=== PATIENT | male | born 1975 | race Hispanic/Latino ===

== ENCOUNTER 2020-03-03 08:25 | Inpatient (IN) | payer OTHER ==
[~2020-03-03] VITALS: Ht 185.4 cm; Wt 98.9 kg
[2020-03-03] MEDS: AZITHROMYCIN 500MG/NS 250 ML 250 ML IV SCH (09:23)
[2020-03-03] MEDS: CEFTRIAXONE SOD 1 GM/NS 50 ML 50 ML IV SCH (09:23)
[2020-03-03] MEDS ORDERED: ACETAMINOPHEN 325 MG TAB PO ONE (09:30)
[2020-03-03 09:47] LABS: HEMATOCRIT 33.9 % (38.2-49.6); HEMOGLOBIN 11.6 g/dL (14.0-18.0); LYMPHOCYTES # (AUTO) 0.4 (1.0-3.2); LYMPHOCYTES % 12.3 % (18.0-39.1); MEAN CORPUSCULAR HGB CONC 34.2 g/dL (31-35); MONOCYTES # (AUTO) 0.1 (0.2-0.8); MONOCYTES % 3.7 % (4.4-11.3); NEUTROPHILS # (AUTO) 2.5 (2.1-6.9); NEUTROPHILS % 83.7 % (38.7-80.0); PLATELET COUNT 125 x10e3/uL (140-360); RED BLOOD COUNT 4.29 x10e6/uL (4.3-5.7); RED CELL DISTRIBUTION WIDTH 14.2 % (11.7-14.4)
--- NOTE | 2020-03-03 10:02 | Diagnostic Imaging Report ---
EXAMINATION: CHEST SINGLE (PORTABLE) INDICATION: Cough, shortness of breath COMPARISON: None FINDINGS: LINES/TUBES:EKG leads overlie the chest. LUNGS:The lung volumes are low. Patchy bilateral airspace opacities. PLEURA:No pleural effusion or pneumothorax. MEDIASTINUM:The cardiomediastinal silhouette appears normal in size and shape. BONES/SOFT TISSUES:No acute osseous injury. ABDOMEN:No free air under the diaphragm. IMPRESSION: Patchy bilateral airspace opacities concerning for pneumonia in the proper clinical setting. Signed by: Stef Hickey MD on 03/03/2020 9:59 AM
[2020-03-03 10:05] LABS: ALANINE AMINOTRANSFERASE 33 IU/L (0-55); ALBUMIN/GLOBULIN RATIO 0.7 (0.8-2.0); ALKALINE PHOSPHATASE 173 IU/L (40-150); ANION GAP 14.8 mmol/L (8-16); BLOOD UREA NITROGEN 15 mg/dL (7-26); BUN/CREATININE RATIO 19 (6-25); CALCIUM 8.6 mg/dL (8.4-10.2); CARBON DIOXIDE 25 mmol/L (22-29); CHLORIDE 98 mmol/L (98-107); CREATINE KINASE 72 IU/L (30-200); EST GLOMERULAR FILTRATION RATE > 60 ML/MIN (60-); GLUCOSE 148 mg/dL (74-118); POTASSIUM 3.8 mmol/L (3.5-5.1); PROTHROMBIN TIME 13.8 seconds (11.9-14.5); SODIUM 134 mmol/L (136-145)
[2020-03-03 10:06] LABS: PARTIAL THROMBOPLASTIN TIME 33.9 seconds (23.8-35.5)
[2020-03-03] MEDS ORDERED: ONDANSETRON HCL INJ 2MG/ML 2ML 2 MG/ML VIAL IV PRN (11:30)
[2020-03-03] MEDS ORDERED: SODIUM CHLORIDE 0.9% 1000ML 1,000 ML IV SCH (11:30)
[2020-03-03] MEDS ORDERED: ALBUTEROL SULFATE HFA 8GM INHALATION AEROSOL INH PRN (11:30)
--- NOTE | 2020-03-03 11:43 | Emergency Department Note ---
History of Present Illnes History of Present Illness Chief Complaint: COVID PUI History of Present Illness This is a 44 year old male ONSET COUGH F/C ACHY ALL OVER 02/28, NOW SOB SINCE YESTERDAY, PT WENT TO TESTING SITE AND HAS POSITIVE RESULTS. PT ARRIVED SOB AND TACHYPNENIC. PT FEBRILE WELL 102.9 HERE. HAS TAKEN NO TYLENOL MANAGER AGENCY. PT AWAKE AND ALERT. SLIGHT TO MOD. RESP DISTRESS NOTED. PT AAOX4. NON SMOKER. 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 Arrival Mode: [facility] Treatment MANAGER AGENCY: O2, EKG, See EMS Report Clothing Worker Required: No Radiation: Reports non-radiation Severity: moderate Onset quality: gradual Timing of current episode: constant Progression: waxing and waning Chronicity: new Context: Denies recent illness Relieving factors: none Exacerbating factors: none Associated symptoms: Reports chest pain, Reports cough, Reports fever/chills, Reports headaches, Reports shortness of breath, Reports weakness, Reports other (ACHY ALL OVER) Past Medical/Family History Physician Review I have reviewed the patient's past medical and family history. Any updates have been documented here. Past Medical History Recent Fever: Yes Clinical Suspicion of Infectio: Yes New/Unexplained Change in Ment: No Past Medical History: Diabetes Other Surgery: RT TOE AMPUTATION Social History Smoking Cessation: Current every day smoker Counseling Performed: No Alcohol Use: None Any Illegal Drug Use: No TB Exposure/Symptoms: No Physically hurt or threatened: No Family History Family history of heart diseas: No Other Any Pre-Existing Lines (PICC,: No Review of Systems Review of Systems Constitutional: Reports as per HPI EENTM: Reports no symptoms Cardiovascular: Reports no symptoms Respiratory: Reports as per HPI Gastrointestinal: Reports no symptoms Genitourinary: Reports no symptoms Musculoskeletal: Reports no symptoms Integumentary: Reports no symptoms Neurological: Reports no symptoms Psychological: Reports no symptoms Endocrine: Reports no symptoms Hematological/Lymphatic: Reports no symptoms Physical Exam Related Data Allergies: Coded Allergies: No Known Allergies (Unverified , 03/03/20) Triage Vital Signs Vital Signs Date Time Temp Pulse Resp B/P (MAP) Pulse Ox O2 Delivery O2 Flow Rate FiO2 03/03/20 08:34 102.9 86 24 148/89 93 Room Air Vital signs reviewed: Yes Physical Exam CONSTITUTIONAL Constitutional: Present well-developed, Present well-nourished HENT HENT: Present normocephalic, Present atraumatic, Present oropharynx clear/moist, Present nose normal HENT L/R: Present left ext ear normal, Present right ext ear normal EYES Eyes: Reports PERRL, Reports conjunctivae normal NECK Neck: Present ROM normal PULMONARY Pulmonary: Present respiratory distress (MILD, WITH TACHYPNEA), Present other (DECR BS's BILAT BASES) CARDIOVASCULAR Cardiovascular: Present regular rhythm, Present heart sounds normal, Present capillary refill normal, Present normal rate GASTROINTESTINAL Abdominal: Present soft, Present nontender, Present bowel sounds normal GENITOURINARY Genitourinary: Present exam deferred SKIN Skin: Present warm, Present dry MUSCULOSKELETAL Musculoskeletal: Present ROM normal NEUROLOGICAL Neurological: Present alert, Present oriented x 3, Present no gross motor or sensory deficits PSYCHOLOGICAL Psychological: Present mood/affect normal, Present judgement normal Results Laboratory Result Diagram: 03/03/20 0930 03/03/20 0930 Laboratory Laboratory Tests Test 03/03/20 09:30 White Blood Count 3.00 x10e3/uL (4.8-10.8) Red Blood Count 4.29 x10e6/uL (4.3-5.7) Hemoglobin 11.6 g/dL (14.0-18.0) Hematocrit 33.9 % (38.2-49.6) Mean Corpuscular Volume 79.0 fL (81-99) Mean Corpuscular Hemoglobin 27.0 pg (28-32) Mean Corpuscular Hemoglobin Concent 34.2 g/dL (31-35) Red Cell Distribution Width 14.2 % (11.7-14.4) Platelet Count 125 x10e3/uL (140-360) Neutrophils (%) (Auto) 83.7 % (38.7-80.0) Lymphocytes (%) (Auto) 12.3 % (18.0-39.1) Monocytes (%) (Auto) 3.7 % (4.4-11.3) Eosinophils (%) (Auto) 0.0 % (0.0-6.0) Basophils (%) (Auto) 0.0 % (0.0-1.0) Neutrophils # (Auto) 2.5 (2.1-6.9) Lymphocytes # (Auto) 0.4 (1.0-3.2) Monocytes # (Auto) 0.1 (0.2-0.8) Eosinophils # (Auto) 0.0 (0.0-0.4) Basophils # (Auto) 0.0 (0.0-0.1) Absolute Immature Granulocyte (auto 0.01 x10e3/uL (0-0.1) Prothrombin Time 13.8 seconds (11.9-14.5) Prothromb Time International Ratio 1.00 Activated Partial Thromboplast Time 33.9 seconds (23.8-35.5) Sodium Level 134 mmol/L (136-145) Potassium Level 3.8 mmol/L (3.5-5.1) Chloride Level 98 mmol/L (98-107) Carbon Dioxide Level 25 mmol/L (22-29) Anion Gap 14.8 mmol/L (8-16) Blood Urea Nitrogen 15 mg/dL (7-26) Creatinine 0.80 mg/dL (0.72-1.25) Estimat Glomerular Filtration Rate > 60 ML/MIN (60-) BUN/Creatinine Ratio 19 (6-25) Glucose Level 148 mg/dL (74-118) Calcium Level 8.6 mg/dL (8.4-10.2) Total Bilirubin 2.5 mg/dL (0.2-1.2) Aspartate Amino Transf (AST/SGOT) 29 IU/L (5-34) Alanine Aminotransferase (ALT/SGPT) 33 IU/L (0-55) Alkaline Phosphatase 173 IU/L (40-150) Creatine Kinase 72 IU/L (30-200) Creatine Kinase MB 1.00 ng/mL (0-5.0) Troponin I 0.013 ng/mL (0-0.300) B-Type Natriuretic Peptide 90.0 pg/mL (0-100) Total Protein 7.2 g/dL (6.5-8.1) Albumin 3.0 g/dL (3.5-5.0) Globulin 4.2 g/dL (2.3-3.5) Albumin/Globulin Ratio 0.7 (0.8-2.0) Lab results reviewed: Yes Imaging Imaging results reviewed: Yes Impressions EXAMINATION: CHEST SINGLE (PORTABLE) INDICATION: Cough, shortness of breath COMPARISON: None FINDINGS: LINES/TUBES:EKG leads overlie the chest. LUNGS:The lung volumes are low. Patchy bilateral airspace opacities. PLEURA:No pleural effusion or pneumothorax. MEDIASTINUM:The cardiomediastinal silhouette appears normal in size and shape. BONES/SOFT TISSUES:No acute osseous injury. ABDOMEN:No free air under the diaphragm. IMPRESSION: Patchy bilateral airspace opacities concerning for pneumonia in the proper clinical setting. Signed by: Stef Hickey MD on 03/03/2020 9:59 AM Procedures 12 Lead ECG Interpretation ECG Interpretation : ECG: ECG 1 Clothing Worker: Interpreted by ED physician Date: Mar 03, 2020 Time: 08:38 Rhythm: sinus tachycardia Rate: tachycardia (103) QRS axis: left ST segments normal: Yes T waves normal: Yes Clinical Impression: abnormal ECG Assessment & Plan Medical Decision Making MDM CBC, CHEM, ECG, CARDIACS, BLOOD CX'S, COVID SWAB, CXR - R/O COVID/PNEUMONIA, STEMI/NSTEMI, ELECTROLYTE ABNL Reassessment Reassessment ADMIT TO SILVIA, JIMBO GREGORY Assessment & Plan Final Impression: (1) Pneumonia due to COVID-19 virus (2) Hypoxia Depart Disposition: ADMITTED Last Vital Signs Date Time Temp Pulse Resp B/P (MAP) Pulse Ox O2 Delivery O2 Flow Rate FiO2 03/03/20 08:34 102.9 86 24 148/89 93 Room Air DANIE MILIAN MD Mar 03, 2020 11:43
[2020-03-03] MEDS ORDERED: HYDRALAZINE HCL 20 MG/ML VIAL IV PRN (13:15)
[2020-03-03] MEDS ORDERED: GUAIFENESIN 600MG/DEXTROMETHORPHAN 30MG TABSR PO PRN (13:15)
--- NOTE | 2020-03-03 16:21 | NUR ---
[id number] no steroids not hypoxemic
--- NOTE | 2020-03-03 16:26 | NUR ---
CALL TO THE ER. SPOKE W MUSA / BEDSIDE NURSE. CM INQUIRED ABOUT HOME O2 EVAL. STATES RT HAD NOT BEEN THERE TO DO THE EVAL YET. STATES THE PT IS BEING ADMITTED TO OBS. CM WILL F/U IN THE AM.
[2020-03-03 16:36] LABS: CREATINE KINASE MB 0.7 ng/mL (0-5.0)
[2020-03-03] MEDS: ASCORBIC ACID 500 MG TAB PO SCH (16:46)
[2020-03-03] MEDS: FAMOTIDINE 20 MG TAB PO SCH (16:46)
[2020-03-03] MEDS ORDERED: KETOROLAC TROMETHAMINE 30 MG/ML VIAL IV STA (16:46)
--- NOTE | 2020-03-03 17:25 | Consultation ---
DATE OF CONSULTATION: HISTORY OF PRESENT ILLNESS: This is a 44-year-old male, who comes in with cough and shortness of breath for one day. Apparently, he was achy all over. The patient was admitted. He is currently on room air, comfortable, but little bit short of breath. PAST MEDICAL HISTORY: Denies. PAST SURGICAL HISTORY: Denies. ALLERGIES: NKA. LABORATORY DATA: His white count was 3, hemoglobin 11. His COVID is still pending. Sodium 134, creatinine 0.8. His chest x-ray showed patchy bilateral infiltrate. PAST MEDICAL HISTORY: Denies. PAST SURGICAL HISTORY: Denies. SOCIAL HISTORY: There is no smoking, drug abuse or abuse. PHYSICAL EXAMINATION: GENERAL: Currently, alert and oriented, does not seem in acute distress. VITAL SIGNS: Stable. Currently afebrile. HEENT: He is not icteric. NECK: Supple. CHEST: Clear. HEART: S1 and S2. No murmurs. ABDOMEN: Soft. IMPRESSION: Atypical pneumonia. I agree with Rocephin and azithromycin, oxygen as needed. Further recommendations to follow. We will follow with you. Lovenox at 40 mg subcutaneously q.24 hours. MD FANY Smith/[place] /[id number]
[2020-03-03] MEDS ORDERED: DEXTROSE 50% SYRINGE 50 ML IV PRN (19:00)
--- NOTE | 2020-03-03 19:07 | NUR ---
REPORT GIVEN TO THIS NURSE BY MUSA WALLIS
--- NOTE | 2020-03-03 19:25 | Consultation ---
DATE OF CONSULTATION: Pulmonary Critical Care Consultation CHIEF COMPLAINT: Dyspnea and cough. HISTORY OF PRESENT ILLNESS: The patient is a 44-year-old man. He has a history of diabetes. He reports fever and chills for 2 to 3 days. He has no chest pain. History of cough as well as some shortness of breath. He is not complaining of any nausea or vomiting. PAST MEDICAL HISTORY: 1. Diabetes. 2. No prior history of asthma. 3. No prior history of heart problems. PAST SURGICAL HISTORY: History of toe amputation. SOCIAL HISTORY: The patient is not a smoker. He is not a drinker. ALLERGIES: NO KNOWN DRUG ALLERGIES. REVIEW OF SYSTEMS: The patient is afebrile. The patient does have fevers. He is not complaining of any headache. He has no neck pain. He does have some cough. He has a difficulty breathing. He denies any abdominal pain. He has no nausea or vomiting. He has no leg edema. PHYSICAL EXAMINATION: VITAL SIGNS: The patient is afebrile. The T-max is 101.5. The blood pressure is 110/50 and saturation is 94% on nasal cannula. HEENT: Shows no facial swelling or erythema. LYMPHATIC: Shows no submandibular, cervical, or supraclavicular adenopathy. CARDIAC: Reveals regular rate and rhythm with normal S1, S2. LUNGS: Auscultation of lungs reveals crackles and rhonchi bilaterally. ABDOMEN: Soft, nontender. There is no rebound or guarding. EXTREMITIES: Shows no leg edema or calf tenderness. There is no cyanosis or clubbing. SKIN: Shows no rashes. NEUROLOGICAL: Shows no focal abnormalities. LABORATORY DATA: White blood cell count is 3 and hemoglobin is 11.6. The platelet count is 125. The BUN to creatinine ratio is 15 to 0.8 and the sodium is 134. Albumin is 3.0. Chest x-ray shows bilateral airspace disease. IMPRESSION: 1. Viral pneumonia, probable COVID-19 infection. 2. Diabetes. PLAN: 1. Continue Rocephin and Zithromax. 2. Dexamethasone. 3. Lovenox. 4. Albuterol inhaler as needed. 5. Monitor and control blood sugars. Fran Bueno MD [facility]/[place] /[id number]
[2020-03-03] MEDS: ENOXAPARIN SOD INJ 60 MG/0.6 ML SYR SC SCH (21:12)
[2020-03-03] MEDS: INSULIN REGULAR, HUMAN 100 UNIT/1 ML 3ML VIAL SQ SCH (21:15)
[2020-03-03] MEDS: ACETAMINOPHEN 325 MG TAB PO PRN (21:38)
[2020-03-04] VITALS (7 sets, daily range): BP systolic 105–154; BP diastolic 63–84
[2020-03-04] MEDS ORDERED: SODIUM CHLORIDE 0.9% 1000ML 1,000 ML ONE (02:44)
--- NOTE | 2020-03-04 02:48 | NUR ---
RECEIVED THE PATIENT FROM ER IN [facility] .ASSESSMENT DONE.NO RESP.DISTRESS.GEN PAIN VOICED .ORIENTED TO THE UNIT.BED LOCKED AND IN LOWEST POSITION.PHONE AND CALL LIGHT WITHIN REACH.INSTRUCTED TO CALL FOR ASSISTANCE NEEDED.
[2020-03-04] MEDS: ACETAMINOPHEN 325 MG TAB PO PRN ×3 (04:13→21:05)
[2020-03-04 04:58] LABS: EOSINOPHILS % 0.3 % (0.0-6.0); HEMATOCRIT 31.6 % (38.2-49.6); HEMOGLOBIN 10.9 g/dL (14.0-18.0); LYMPHOCYTES # (AUTO) 0.4 (1.0-3.2); LYMPHOCYTES % 10.8 % (18.0-39.1); MEAN CORPUSCULAR HEMOGLOBIN 27.1 pg (28-32); MEAN CORPUSCULAR HGB CONC 34.5 g/dL (31-35); MEAN CORPUSCULAR VOLUME 78.6 fL (81-99); MONOCYTES # (AUTO) 0.1 (0.2-0.8); MONOCYTES % 2.4 % (4.4-11.3); NEUTROPHILS # (AUTO) 3.2 (2.1-6.9); PLATELET COUNT 119 x10e3/uL (140-360); RED BLOOD COUNT 4.02 x10e6/uL (4.3-5.7); RED CELL DISTRIBUTION WIDTH 14.2 % (11.7-14.4)
[2020-03-04 05:17] LABS: ALANINE AMINOTRANSFERASE 29 IU/L (0-55); ALBUMIN 2.6 g/dL (3.5-5.0); ALBUMIN/GLOBULIN RATIO 0.7 (0.8-2.0); ALKALINE PHOSPHATASE 169 IU/L (40-150); ANION GAP 14.5 mmol/L (8-16); BLOOD UREA NITROGEN 21 mg/dL (7-26); BUN/CREATININE RATIO 27 (6-25); CALCIUM 7.7 mg/dL (8.4-10.2); CARBON DIOXIDE 23 mmol/L (22-29); CHLORIDE 100 mmol/L (98-107); CREATININE, SERUM 0.78 mg/dL (0.72-1.25); EST GLOMERULAR FILTRATION RATE > 60 ML/MIN (60-); GLUCOSE 173 mg/dL (74-118); POTASSIUM 3.5 mmol/L (3.5-5.1); SODIUM 134 mmol/L (136-145)
[2020-03-04 05:34] LABS: CREATINE KINASE MB 0.9 ng/mL (0-5.0)
--- NOTE | 2020-03-04 07:00 | NUR ---
REPORT GIVEN TO ONCOMING RN.STABLE CONDITION.
[2020-03-04] MEDS ORDERED: TYLENOL325 M2 PO (07:19)
[2020-03-04] MEDS ORDERED: PROAIR HFA INH8.5 GM INH (07:19)
[2020-03-04] MEDS ORDERED: ASPIRIN325 MG PO (07:19)
[2020-03-04] MEDS ORDERED: DEXAMETHASONE6 MG PO (07:19)
[2020-03-04] MEDS: INSULIN REGULAR, HUMAN 100 UNIT/1 ML 3ML VIAL SQ SCH ×4 (07:30→21:04)
--- NOTE | 2020-03-04 07:34 | Diagnostic Imaging Report ---
Examination: Single AP view of the chest. COMPARISON: Portable chest 03/03/2020 INDICATION: Bilateral pneumonia IMPRESSION: 1. Lines and Tubes: None 2. Hypoinflated lungs. Interval worsening of diffuse bilateral interstitial and alveolar opacities consistent with multifocal pneumonia. 3. Cardiomediastinal silhouette is normal. Pulmonary vasculature is normal. 4. No acute bony abnormalities. Signed by: Dr. Ephraim Noriega M.D. on 03/04/2020 7:31 AM
[2020-03-04] MEDS ORDERED: BENZONATATE 100 MG CAP PO PRN (08:00)
[2020-03-04] MEDS ORDERED: DEXAMETHASONE SOD PHOS INJ 4 MG/ML VIAL IV SCH (09:00)
[2020-03-04] MEDS: ZINC SULFATE 220 MG CAP PO SCH (09:17)
[2020-03-04] MEDS: FAMOTIDINE 20 MG TAB PO SCH ×2 (09:17→16:09)
[2020-03-04] MEDS: ASCORBIC ACID 500 MG TAB PO SCH ×2 (09:17→16:09)
[2020-03-04] MEDS: ENOXAPARIN SOD INJ 60 MG/0.6 ML SYR SC SCH ×2 (09:17→21:00)
[2020-03-04] MEDS: DEXAMETHASONE SOD PHOS INJ 4 MG/ML VIAL IV SCH (09:17)
[2020-03-04] MEDS: CHOLECALCIFEROL 400 UNIT TAB PO SCH (09:17)
[2020-03-04] MEDS: CEFTRIAXONE SOD 1 GM/NS 50 ML 50 ML IV SCH (09:17)
[2020-03-04] MEDS: AZITHROMYCIN 500MG/NS 250 ML 250 ML IV SCH (09:18)
[2020-03-04] MEDS ORDERED: SODIUM CHLORIDE 0.9% 250ML 250 ML ONE (10:10)
--- NOTE | 2020-03-04 12:58 | Progress Note ---
DATE: SUBJECTIVE: The patient is seen and evaluated. Available labs and notes reviewed. Remains with cough and shortness of breath. Fever has improved from 102.9 to 99.8/100.6. PHYSICAL EXAMINATION: VITAL SIGNS: Temperature 100.6, pulse 86, respiration 20, and blood pressure 154/84. GENERAL: Alert and oriented, on 2 to 3 L of O2 nasal cannula with saturation of 94% to 97%. CV: S1 and S2. CHEST: Bilateral crackles and rhonchi. Equal expansion. ABDOMEN: Soft and nontender. HEENT: Moist. No pallor. No JVD. EXTREMITIES: No edema. Moves all. MEDICATIONS: Reviewed and from ID point of view, the patient is on Zithromax, dexamethasone, vitamin C, zinc sulfate, Lovenox, and Rocephin. LABORATORY STUDIES: White count of 3.72, hemoglobin 10.9, and platelet 119. Sodium 134, potassium 3.5, and creatinine 0.78. Serology; coronavirus PCR was detected on 03/03/2020. MICROBIOLOGY: Blood culture negative. RADIOLOGY STUDIES: Chest x-ray from today showed hyperinflated lungs and interval worsening of diffuse bilateral interstitial and alveolar opacities consistent with multifocal pneumonia. ASSESSMENT AND PLAN: 1. COVID-19 pneumonia. 2. Concern superimposed bacterial pneumonia. 3. Diabetes. 4. Continue to monitor the patient clinically and follow with the labs. Please refer to chart for more information. Dictated by Kam Monterroso PA-C (Al) Yumiko Hodges MD /[facility] /[id number]
--- NOTE | 2020-03-04 16:20 | Progress Note ---
DATE: SUBJECTIVE: The patient is afebrile. Having some mild dyspnea. He is requiring nasal cannula at 2 L. OBJECTIVE: VITAL SIGNS: T-max is 100.6. The blood pressure is 154/84, saturation is 97% on 2 L. The pulse is 86. HEENT: Shows no facial swelling or erythema. CARDIAC: Reveals regular rate and rhythm with normal S1 and S2. LUNGS: Auscultation of lungs reveals clear breath sounds bilaterally. There is no wheezing. ABDOMEN: Soft, nontender. There is no rebound or guarding. EXTREMITIES: Shows no leg edema or calf tenderness. There is no cyanosis or clubbing. SKIN: Shows no rashes. NEUROLOGICAL: Shows no focal abnormalities. LABORATORY DATA: White blood cell count is 3.7 and hemoglobin is 10.9. The platelet count is 119. BUN to creatinine ratio is normal. The other electrolytes are within normal limits. Albumin is 2.6. RADIOGRAPHIC DATA: Chest x-ray shows bilateral infiltrates. ASSESSMENT: 1. Viral pneumonia and coronavirus disease-19 infection. 2. Diabetes. 3. Thrombocytopenia. PLAN: 1. Continue Lovenox. 2. Complete antibiotics. 3. Complete dexamethasone. 4. Oxygen. Fran Bueno MD [facility] /[id number]
--- NOTE | 2020-03-04 17:00 | NUR ---
blood drawn at this time
[2020-03-04 17:13] LABS: CREATINE KINASE MB 0.9 ng/mL (0-5.0)
[2020-03-05 01:04] VITALS: BP 108/70
[2020-03-05 05:33] VITALS: BP 126/80
[2020-03-05 06:14] LABS: HEMATOCRIT 33.3 % (38.2-49.6); HEMOGLOBIN 11.1 g/dL (14.0-18.0); LYMPHOCYTES # (AUTO) 0.6 (1.0-3.2); LYMPHOCYTES % 15.7 % (18.0-39.1); MEAN CORPUSCULAR HEMOGLOBIN 26.6 pg (28-32); MEAN CORPUSCULAR HGB CONC 33.3 g/dL (31-35); MEAN CORPUSCULAR VOLUME 79.9 fL (81-99); MONOCYTES # (AUTO) 0.1 (0.2-0.8); MONOCYTES % 3.4 % (4.4-11.3); NEUTROPHILS # (AUTO) 3.1 (2.1-6.9); NEUTROPHILS % 80.6 % (38.7-80.0); PLATELET COUNT 180 x10e3/uL (140-360); RED BLOOD COUNT 4.17 x10e6/uL (4.3-5.7); RED CELL DISTRIBUTION WIDTH 14.1 % (11.7-14.4)
[2020-03-05 06:35] LABS: ALANINE AMINOTRANSFERASE 30 IU/L (0-55); ALBUMIN 2.7 g/dL (3.5-5.0); ALBUMIN/GLOBULIN RATIO 0.6 (0.8-2.0); ALKALINE PHOSPHATASE 185 IU/L (40-150); ANION GAP 12.9 mmol/L (8-16); BLOOD UREA NITROGEN 18 mg/dL (7-26); BUN/CREATININE RATIO 25 (6-25); CALCIUM 8.2 mg/dL (8.4-10.2); CARBON DIOXIDE 22 mmol/L (22-29); CHLORIDE 104 mmol/L (98-107); CREATININE, SERUM 0.73 mg/dL (0.72-1.25); EST GLOMERULAR FILTRATION RATE > 60 ML/MIN (60-); GLUCOSE 141 mg/dL (74-118); POTASSIUM 3.9 mmol/L (3.5-5.1); SODIUM 135 mmol/L (136-145)
[2020-03-05] MEDS: INSULIN REGULAR, HUMAN 100 UNIT/1 ML 3ML VIAL SQ SCH ×4 (07:30→21:00)
[2020-03-05] MEDS: FAMOTIDINE 20 MG TAB PO SCH ×2 (08:28→17:00)
[2020-03-05] MEDS: CHOLECALCIFEROL 400 UNIT TAB PO SCH (08:41)
[2020-03-05] MEDS: CEFTRIAXONE SOD 1 GM/NS 50 ML 50 ML IV SCH (08:41)
[2020-03-05] MEDS: ASCORBIC ACID 500 MG TAB PO SCH ×2 (08:41→17:00)
[2020-03-05] MEDS: ZINC SULFATE 220 MG CAP PO SCH (08:41)
[2020-03-05] MEDS: AZITHROMYCIN 500MG/NS 250 ML 250 ML IV SCH (08:42)
[2020-03-05] MEDS: ENOXAPARIN SOD INJ 60 MG/0.6 ML SYR SC SCH ×2 (08:42→21:00)
[2020-03-05 10:32] VITALS: BP 116/78
[2020-03-05] MEDS: DEXAMETHASONE SOD PHOS INJ 4 MG/ML VIAL IV SCH (10:50)
[2020-03-05] MEDS ORDERED: ALBUTEROL SULFATE HFA 8GM INHALATION AEROSOL INH PRN (11:15)
[2020-03-05] MEDS ORDERED: GUAIFENESIN/CODEINE 10 ML CUP PO PRN (11:45)
--- NOTE | 2020-03-05 11:45 | NUR ---
pt was assessed for home oxygen, pt with no 02 while lying in bed sat at 87%,
--- NOTE | 2020-03-05 12:51 | NUR ---
Received order to arrange home O2. Pt sat at 87% on RA. Currently on 4L via OK. Called pt to discuss home oxygen. He states can use any company that takes his insurance. CM informed him found [facility] [employer] may be able to accept his insurance. Will send there first. Pt agreeable. Referral faxed to [facility] [employer] at [phone] / Nidhi with [employer] [facility] [employer] was informed of referral and will let CM know if they are able to accept insurance.
--- NOTE | 2020-03-05 16:13 | NUR ---
Signed letter of medical necessity faxed to [facility] [employer].
--- NOTE | 2020-03-05 16:21 | Progress Note ---
DATE: SUBJECTIVE: The patient still has some dyspnea. He has mild cough. PHYSICAL EXAMINATION: VITAL SIGNS: The patient is afebrile. The blood pressure is 126/80, saturation is 94%. HEENT: Shows no facial swelling or erythema. CARDIAC: Reveals regular rate and rhythm with normal S1 and S2. LUNGS: Auscultation of lungs shows decreased breath sounds at the bases. There is no wheezing. ABDOMEN: Soft, nontender. There is no rebound or guarding. EXTREMITIES: Shows no leg edema or calf tenderness. There is no cyanosis or clubbing. SKIN: Shows no rashes. NEUROLOGICAL: Shows no focal abnormalities. IMPRESSION: 1. Viral pneumonia and coronavirus disease-19 infection. 2. Diabetes. 3. Thrombocytopenia. PLAN: 1. Continue Lovenox. 2. Complete antibiotics. 3. Complete dexamethasone. 4. Bronchodilators. 5. Oxygen. 6. Possible discharge tomorrow. Fran Bueno MD [facility] /[id number]
[2020-03-05 16:43] VITALS: BP 117/75
--- NOTE | 2020-03-05 17:03 | NUR ---
Spoke with Nidhi at [facility] [employer]. States they will deliver portable and concentrator this evening.
--- NOTE | 2020-03-05 17:16 | Progress Note ---
DATE: SUBJECTIVE: Mr. Mcnair is doing well. There are no new complaints. The patient is on 4 L, but he is still fatigued, but he is feeling better. PHYSICAL EXAMINATION: GENERAL: He is currently alert and oriented. Does not seem to be in acute distress. VITAL SIGNS: Stable, currently afebrile. HEENT: Not icteric. NECK: Supple. CHEST: Clear. IMPRESSION: Respiratory failure and COVID-19. PLAN: To continue with oxygen. Continue with antibiotic as ordered. Plan as ordered with him slowly. We will continue to monitor him, probably can be discharged home soon in a day or 2 if he continued to improve. We will follow with you. MD FANY Smith/[place] /[id number]
[2020-03-05 20:00] VITALS: BP 113/74
--- NOTE | 2020-03-05 20:12 | NUR ---
Received pt in bed asleep, easily aroused, denies pain or discomfort. Educated pt on inhaler, demonstrated w/o diff. Bed in low position and locked, personal items and call light within reach. Will cont to mon.
[2020-03-05 21:00] VITALS: BP 113/74
[2020-03-06] VITALS (8 sets, daily range): BP systolic 96–121; BP diastolic 69–78
[2020-03-06 04:59] LABS: BASOPHILS % 0.3 % (0.0-1.0); EOSINOPHILS % 0.3 % (0.0-6.0); HEMATOCRIT 31.9 % (38.2-49.6); HEMOGLOBIN 10.7 g/dL (14.0-18.0); LYMPHOCYTES % 27.8 % (18.0-39.1); MEAN CORPUSCULAR HEMOGLOBIN 26.9 pg (28-32); MEAN CORPUSCULAR HGB CONC 33.5 g/dL (31-35); MEAN CORPUSCULAR VOLUME 80.2 fL (81-99); MONOCYTES # (AUTO) 0.2 (0.2-0.8); MONOCYTES % 4.9 % (4.4-11.3); NEUTROPHILS # (AUTO) 2.3 (2.1-6.9); NEUTROPHILS % 66.1 % (38.7-80.0); PLATELET COUNT 201 x10e3/uL (140-360); RED BLOOD COUNT 3.98 x10e6/uL (4.3-5.7); RED CELL DISTRIBUTION WIDTH 14.2 % (11.7-14.4)
[2020-03-06 05:18] LABS: ALANINE AMINOTRANSFERASE 25 IU/L (0-55); ALBUMIN 2.4 g/dL (3.5-5.0); ALBUMIN/GLOBULIN RATIO 0.6 (0.8-2.0); ALKALINE PHOSPHATASE 176 IU/L (40-150); ANION GAP 12.7 mmol/L (8-16); BLOOD UREA NITROGEN 18 mg/dL (7-26); BUN/CREATININE RATIO 25 (6-25); CALCIUM 8.1 mg/dL (8.4-10.2); CARBON DIOXIDE 27 mmol/L (22-29); CHLORIDE 103 mmol/L (98-107); CREATININE, SERUM 0.71 mg/dL (0.72-1.25); EST GLOMERULAR FILTRATION RATE > 60 ML/MIN (60-); GLUCOSE 93 mg/dL (74-118); POTASSIUM 3.7 mmol/L (3.5-5.1); SODIUM 139 mmol/L (136-145)
--- NOTE | 2020-03-06 06:23 | NUR ---
Pt resting in bed easily aroused, O3 sat decreased to 2L for 93%. Will report off to oncoming staff, no s/sx of distress noted.
[2020-03-06] MEDS: INSULIN REGULAR, HUMAN 100 UNIT/1 ML 3ML VIAL SQ SCH ×4 (07:30→20:43)
--- NOTE | 2020-03-06 07:45 | NUR ---
received call from telemetry; pt's oxygen sat 78%. found pt laying in bed with nasal cannula dislodged. pt put back on NC and increased to 4L. pt's O2 88%. increased to 7L with no improvement of saturation. increased to 10L, O2 sats climbed to 94%. informed MAJOR mE who came to see pt at bedside. will continue to monitor.
[2020-03-06] MEDS ORDERED: DEXAMETHASONE4 MG PO (08:09)
[2020-03-06] MEDS ORDERED: ELIQUIS2.5 MG PO (08:09)
[2020-03-06] MEDS ORDERED: CHLORASEPTIC SPRAY 177 ML BTL MM PRN (08:15)
[2020-03-06] MEDS: FAMOTIDINE 20 MG TAB PO SCH ×2 (09:43→15:52)
[2020-03-06] MEDS: DEXAMETHASONE SOD PHOS INJ 4 MG/ML VIAL IV SCH (09:44)
[2020-03-06] MEDS: ZINC SULFATE 220 MG CAP PO SCH (09:45)
[2020-03-06] MEDS: CHOLECALCIFEROL 400 UNIT TAB PO SCH (09:45)
[2020-03-06] MEDS: ENOXAPARIN SOD INJ 60 MG/0.6 ML SYR SC SCH ×2 (09:45→20:43)
[2020-03-06] MEDS: ASCORBIC ACID 500 MG TAB PO SCH ×2 (09:51→15:52)
[2020-03-06] MEDS: CEFTRIAXONE SOD 1 GM/NS 50 ML 50 ML IV SCH (09:51)
[2020-03-06] MEDS: AZITHROMYCIN 250 MG TAB PO SCH (09:51)
--- NOTE | 2020-03-06 10:14 | NUR ---
spoke with MAJOR Em regarding pt's O2 sats 94% on 10L NC. she states to wean pt down to 6L and observe. pt taken down to 6L NC, O2 sats dropped to 87%, pt became tachypneic. O2 increased back to 10L NC, sats 90%. will inform CUSTOMER RELATIONS SPECIALIST and continue to observe pt.
--- NOTE | 2020-03-06 10:22 | NUR ---
informed MAJOR Em of pt's O2 status. she states pt will not be discharged at this time. will continue to monitor.
--- NOTE | 2020-03-06 15:26 | Progress Note ---
DATE: SUBJECTIVE: Mr. Mcnair is doing well. No new complaints. He is on 3 L down from 10. PHYSICAL EXAMINATION: GENERAL: He is currently alert, oriented. VITAL SIGNS: Stable, currently afebrile. HEENT: He is not icteric. NECK: Supple. CHEST: Clear. HEART: S1, S2. No murmur. ABDOMEN: Soft. IMPRESSION AND PLAN: Coronavirus disease-19, superimposed bacterial pneumonia, improving. To finish 3 days of azithromycin, 5 days of antibiotic. He is on Lovenox. Continue supportive treatment. MD FANY Smith/[facility] /[id number]
--- NOTE | 2020-03-06 15:41 | Progress Note ---
DATE: SUBJECTIVE: The patient still had some dyspnea with exertion. He has less cough and less fever. PHYSICAL EXAMINATION: VITAL SIGNS: The patient is currently 93% on nasal cannula. Vital signs are otherwise stable. HEENT: Shows no facial swelling or erythema. CARDIAC: Reveals regular rate and rhythm with normal S1 and S2. LUNGS: Auscultation of lungs shows decreased breath sounds at the bases. There is no wheezing. ABDOMEN: Soft and nontender. There is no rebound or guarding. EXTREMITIES: Shows no leg edema or calf tenderness. LABORATORY DATA: CBC significant for hemoglobin of 10.7 and platelet count is 201. BUN to creatinine ratio is normal. Other electrolytes are within normal limits. Albumin is 2.4. IMPRESSION: 1. Viral pneumonia and COVID-19 infection. 2. Diabetes. 3. Anemia, unspecified. PLAN: 1. Continue Lovenox. 2. Continue current antibiotics. 3. Complete dexamethasone. 4. Wean oxygen as tolerated. Fran Bueno MD [facility] /[id number]
[2020-03-07] VITALS (8 sets, daily range): BP systolic 115–124; BP diastolic 74–79
--- NOTE | 2020-03-07 01:20 | NUR ---
Patient removed oxygen to ambulate to restroom, reported feeling very winded. O2 in 80s on NC. Applied high flow NC on 15L. O2 currently at 93%. Provided urinal and instructed patient to call for assistance if need, verbalized understanding. All safety measures in place. Will continue to monitor.
[2020-03-07 05:46] LABS: BASOPHILS % 0.3 % (0.0-1.0); EOSINOPHILS # (AUTO) 0.1 (0.0-0.4); EOSINOPHILS % 1.5 % (0.0-6.0); HEMOGLOBIN 10.7 g/dL (14.0-18.0); LYMPHOCYTES # (AUTO) 0.8 (1.0-3.2); LYMPHOCYTES % 24.8 % (18.0-39.1); MEAN CORPUSCULAR HEMOGLOBIN 26.3 pg (28-32); MEAN CORPUSCULAR HGB CONC 32.4 g/dL (31-35); MEAN CORPUSCULAR VOLUME 81.1 fL (81-99); MONOCYTES # (AUTO) 0.2 (0.2-0.8); MONOCYTES % 5.4 % (4.4-11.3); NEUTROPHILS # (AUTO) 2.2 (2.1-6.9); NEUTROPHILS % 66.8 % (38.7-80.0); PLATELET COUNT 224 x10e3/uL (140-360); RED BLOOD COUNT 4.07 x10e6/uL (4.3-5.7); RED CELL DISTRIBUTION WIDTH 14.1 % (11.7-14.4)
[2020-03-07 06:16] LABS: ALANINE AMINOTRANSFERASE 38 IU/L (0-55); ALBUMIN 2.4 g/dL (3.5-5.0); ALBUMIN/GLOBULIN RATIO 0.6 (0.8-2.0); ALKALINE PHOSPHATASE 200 IU/L (40-150); ANION GAP 11.5 mmol/L (8-16); BLOOD UREA NITROGEN 17 mg/dL (7-26); BUN/CREATININE RATIO 24 (6-25); CARBON DIOXIDE 28 mmol/L (22-29); CHLORIDE 102 mmol/L (98-107); EST GLOMERULAR FILTRATION RATE > 60 ML/MIN (60-); GLUCOSE 140 mg/dL (74-118); POTASSIUM 3.5 mmol/L (3.5-5.1); SODIUM 138 mmol/L (136-145)
--- NOTE | 2020-03-07 06:16 | NUR ---
Patient found in bed with nasal cannula off, O2 level in the 70s, complaining that "the coldness of the oxygen is making me cough." Offered PRN cough medicine, patient refused. Currently 91% on 15L high flow NC. Patient instructed to keep NC and to call for assistance if needed. Will continue to monitor.
--- NOTE | 2020-03-07 07:05 | NUR ---
received change of shift report from VAN Marlow. pt sats 97% on 15L High-flow NC O2. Pt resting, no s/s of distress at this time. will continue to monitor.
[2020-03-07] MEDS: INSULIN REGULAR, HUMAN 100 UNIT/1 ML 3ML VIAL SQ SCH ×4 (08:11→21:07)
[2020-03-07] MEDS: FAMOTIDINE 20 MG TAB PO SCH ×2 (09:02→17:46)
[2020-03-07] MEDS: DEXAMETHASONE SOD PHOS INJ 4 MG/ML VIAL IV SCH (09:04)
[2020-03-07] MEDS: CHOLECALCIFEROL 400 UNIT TAB PO SCH (09:05)
[2020-03-07] MEDS: CEFTRIAXONE SOD 1 GM/NS 50 ML 50 ML IV SCH (09:05)
[2020-03-07] MEDS: ASCORBIC ACID 500 MG TAB PO SCH ×2 (09:05→17:46)
[2020-03-07] MEDS: AZITHROMYCIN 250 MG TAB PO SCH (09:05)
[2020-03-07] MEDS: ZINC SULFATE 220 MG CAP PO SCH (09:05)
[2020-03-07] MEDS: ENOXAPARIN SOD INJ 60 MG/0.6 ML SYR SC SCH ×2 (09:06→21:04)
--- NOTE | 2020-03-07 10:30 | NUR ---
pt weaned down to 10L High-flow NC oxygen, O2 sats 95%. pt tolerating well, no s/s distress. will continue to monitor and wean as necessary.
--- NOTE | 2020-03-07 16:11 | Progress Note ---
DATE: SUBJECTIVE: The patient is now requiring more oxygen. He has increased to 15 L. He has some shortness of breath, but says it is mostly with exertion. He reports some cough. PHYSICAL EXAMINATION: VITAL SIGNS: Blood pressure is 116/76 and saturation is 96% on 15 L. HEENT: Shows no facial swelling or erythema. CARDIAC: Reveals regular rate and rhythm with normal S1, S2. LUNGS: Auscultation of lungs revealed rhonchorous breath sounds bilaterally. There is no wheezing. ABDOMEN: Soft, nontender. There is no rebound or guarding. EXTREMITIES: Showed no leg edema or calf tenderness. There is no cyanosis or clubbing. SKIN: Shows no rashes. LABORATORY DATA: White blood cell count is 3.31, hemoglobin is 10.7, and platelet count is 224. BUN to creatinine ratio is normal. Other electrolytes within normal limits. Albumin is 2.4. IMPRESSION: 1. Acute respiratory failure. 2. Viral pneumonia and COVID-19 infection. 3. Diabetes. 4. Anemia. PLAN: 1. Continue Lovenox. 2. Continue antibiotics. 3. Complete dexamethasone. 4. Continue high-flow oxygen. Fran Bueno MD [facility] /[id number]
--- NOTE | 2020-03-07 19:55 | NUR ---
Resumed care of patient. Patient currently awake and resting in bed, talking to family on phone in complete sentences, respirations even and unlabored, no s/s of distress at this time. O2 96% on 10L high flow nasal cannula, vital signs stable. Will wean oxygen as tolerated. All safety measures in place.
[2020-03-08] VITALS (8 sets, daily range): BP systolic 109–136; BP diastolic 65–86
[2020-03-08 05:15] LABS: BASOPHILS % 0.3 % (0.0-1.0); EOSINOPHILS # (AUTO) 0.1 (0.0-0.4); EOSINOPHILS % 1.8 % (0.0-6.0); HEMATOCRIT 31.7 % (38.2-49.6); HEMOGLOBIN 10.6 g/dL (14.0-18.0); LYMPHOCYTES # (AUTO) 0.8 (1.0-3.2); LYMPHOCYTES % 21.5 % (18.0-39.1); MEAN CORPUSCULAR HEMOGLOBIN 27.2 pg (28-32); MEAN CORPUSCULAR HGB CONC 33.4 g/dL (31-35); MEAN CORPUSCULAR VOLUME 81.5 fL (81-99); MONOCYTES # (AUTO) 0.2 (0.2-0.8); NEUTROPHILS # (AUTO) 2.6 (2.1-6.9); PLATELET COUNT 228 x10e3/uL (140-360); RED BLOOD COUNT 3.89 x10e6/uL (4.3-5.7)
[2020-03-08 05:39] LABS: ALANINE AMINOTRANSFERASE 53 IU/L (0-55); ALBUMIN 2.4 g/dL (3.5-5.0); ALBUMIN/GLOBULIN RATIO 0.6 (0.8-2.0); ALKALINE PHOSPHATASE 241 IU/L (40-150); ANION GAP 12.6 mmol/L (8-16); BLOOD UREA NITROGEN 14 mg/dL (7-26); BUN/CREATININE RATIO 20 (6-25); CALCIUM 8.1 mg/dL (8.4-10.2); CARBON DIOXIDE 27 mmol/L (22-29); CHLORIDE 104 mmol/L (98-107); CREATININE, SERUM 0.69 mg/dL (0.72-1.25); EST GLOMERULAR FILTRATION RATE > 60 ML/MIN (60-); GLUCOSE 106 mg/dL (74-118); POTASSIUM 3.6 mmol/L (3.5-5.1); SODIUM 140 mmol/L (136-145)
--- NOTE | 2020-03-08 07:24 | NUR ---
infectious disease progress note this is late in 2019 Patient seen and examined chart reviewed discussed with the medical team he patient is now requiring more oxygen. He has increased to 15 L. He has some shortness of breath, but says it is mostly with exertion. He reports some cough. PHYSICAL EXAMINATION: VITAL SIGNS: Blood pressure is 116/76 and saturation is 96% on 15 L. HEENT: Shows no facial swelling or erythema. CARDIAC: Reveals regular rate and rhythm with normal S1, S2. LUNGS: Auscultation of lungs revealed rhonchorous breath sounds bilaterally. There is no wheezing. ABDOMEN: Soft, nontender. There is no rebound or guarding. EXTREMITIES: Showed no leg edema or calf tenderness. There is no cyanosis or clubbing. SKIN: Shows no rashes. LABORATORY DATA: White blood cell count is 3.31, hemoglobin is 10.7, and platelet count is 224. BUN to creatinine ratio is normal. Other electrolytes within normal limits. Albumin is 2.4. IMPRESSION: 1. Acute respiratory failure. 2. Viral pneumonia and COVID-19 infection. 3. Diabetes. 4. Anemia. Continue his orders continue supportive care please refer to the notes continue diabetic control
[2020-03-08] MEDS: INSULIN REGULAR, HUMAN 100 UNIT/1 ML 3ML VIAL SQ SCH ×4 (07:30→20:53)
--- NOTE | 2020-03-08 07:45 | NUR ---
LICENSED PRACTICAL VOCATIONAL NURSE IN TO SEE PATIENT, NO COMPLAIN VOICED. HIGH FLOW O2 IN PLACE . BED IN LOWER POSITION, CALL LIGHT AT REACH.
[2020-03-08] MEDS: FAMOTIDINE 20 MG TAB PO SCH ×2 (08:00→16:30)
[2020-03-08] MEDS: ASCORBIC ACID 500 MG TAB PO SCH ×2 (09:23→17:05)
[2020-03-08] MEDS: CHOLECALCIFEROL 400 UNIT TAB PO SCH (09:23)
[2020-03-08] MEDS: AZITHROMYCIN 250 MG TAB PO SCH (09:23)
[2020-03-08] MEDS: CEFTRIAXONE SOD 1 GM/NS 50 ML 50 ML IV SCH (09:23)
[2020-03-08] MEDS: ENOXAPARIN SOD INJ 60 MG/0.6 ML SYR SC SCH ×2 (09:23→20:51)
[2020-03-08] MEDS: ZINC SULFATE 220 MG CAP PO SCH (09:23)
[2020-03-08] MEDS: DEXAMETHASONE SOD PHOS INJ 4 MG/ML VIAL IV SCH (09:23)
--- NOTE | 2020-03-08 11:15 | Diagnostic Imaging Report ---
EXAMINATION: CHEST SINGLE (PORTABLE) INDICATION: Pneumonia COMPARISON: Chest radiograph 03/04/2020 FINDINGS: LINES/TUBES:EKG leads overlie the chest. LUNGS:Lung volumes are low. Unchanged bilateral multifocal airspace opacities. PLEURA:No pleural effusion or pneumothorax. MEDIASTINUM:The cardiomediastinal silhouette appears normal in size and shape. BONES/SOFT TISSUES:No acute osseous injury. ABDOMEN:No free air under the diaphragm. IMPRESSION: Unchanged bilateral multifocal airspace opacities consistent with known pneumonia. Signed by: Stef Hickey MD on 03/08/2020 11:11 AM
--- NOTE | 2020-03-08 11:23 | NUR ---
PATIENT REFUSED BLOOD SUGAR TO BE CHECKED. EDUCATED ON THE IMPORTANCE OF HAVING THE BLOOD SUGAR CHECKED, HE STILL REFUSED. IN BED WITH CALL LIGHT AT REACH.
--- NOTE | 2020-03-08 11:49 | Progress Note ---
DATE: SUBJECTIVE: The patient is afebrile. He remains on 10 L nasal cannula. It was decreased from 15 yesterday. PHYSICAL EXAMINATION: VITAL SIGNS: Blood pressure is 109/70, saturation is in the low 90s. HEENT: Shows no facial swelling or erythema. CARDIAC: Reveals regular rate and rhythm with normal S1 and S2. LUNGS: Auscultation of lungs reveals crackles at the bases. There is no wheezing. ABDOMEN: Soft, nontender. There is no rebound or guarding. EXTREMITIES: Shows no leg edema or calf tenderness. There is no cyanosis or clubbing. SKIN: Shows no rashes. NEUROLOGIC: Shows no focal abnormalities. LABORATORY DATA: BUN to creatinine ratio is normal. The albumin is 2.4. The other electrolytes are within normal limits. Hemoglobin is 10.6 and the platelet count is 228. RADIOGRAPHIC DATA: Chest x-ray shows unchanged bilateral opacities. IMPRESSION: 1. Acute respiratory failure. 2. Viral pneumonia and coronavirus disease-19 infection. 3. Diabetes. 4. Anemia. PLAN: 1. Complete dexamethasone. 2. Continue to wean oxygen. 3. Complete antibiotics. 4. Continue Lovenox. Fran Bueno MD [facility] /[id number]
--- NOTE | 2020-03-08 13:39 | Progress Note ---
DATE: SUBJECTIVE: Mr. Mcnair is on 10 L of oxygen. OBJECTIVE: VITAL SIGNS: Stable, afebrile. HEENT: Not icteric. NECK: Supple. CHEST: Crackles. IMPRESSION: Viral pneumonia COVID-19, diabetes mellitus, anemia, and respiratory failure. Continue to wean oxygen, to finish the Decadron, finish 5 days of antibiotic of Rocephin. Discontinue azithromycin. Continue with anticoagulation. We will follow. MD FANY Smith/MODL /[id number]
--- NOTE | 2020-03-08 19:30 | NUR ---
Resumed care of patient. Patient awake and resting in bed, alert and oriented, respirations even and unlabored on 9L high flow NC, no s/s of distress at this time. Bed locked and in lowest position, side rails upx3, call light placed within reach. All safety measures in place. Will continue to monitor.
[2020-03-09] VITALS: BP 127/77
[2020-03-09 04:25] VITALS: BP 123/75
[2020-03-09 05:10] LABS: BASOPHILS % 0.2 % (0.0-1.0); EOSINOPHILS # (AUTO) 0.1 (0.0-0.4); EOSINOPHILS % 2.7 % (0.0-6.0); HEMATOCRIT 31.9 % (38.2-49.6); HEMOGLOBIN 10.8 g/dL (14.0-18.0); LYMPHOCYTES # (AUTO) 0.9 (1.0-3.2); LYMPHOCYTES % 20.5 % (18.0-39.1); MEAN CORPUSCULAR HEMOGLOBIN 27.2 pg (28-32); MEAN CORPUSCULAR HGB CONC 33.9 g/dL (31-35); MEAN CORPUSCULAR VOLUME 80.4 fL (81-99); MONOCYTES # (AUTO) 0.2 (0.2-0.8); MONOCYTES % 5.8 % (4.4-11.3); NEUTROPHILS # (AUTO) 2.8 (2.1-6.9); NEUTROPHILS % 68.1 % (38.7-80.0); PLATELET COUNT 246 x10e3/uL (140-360); RED BLOOD COUNT 3.97 x10e6/uL (4.3-5.7)
[2020-03-09 05:31] LABS: ALANINE AMINOTRANSFERASE 54 IU/L (0-55); ALBUMIN 2.3 g/dL (3.5-5.0); ALBUMIN/GLOBULIN RATIO 0.5 (0.8-2.0); ALKALINE PHOSPHATASE 247 IU/L (40-150); ANION GAP 10.9 mmol/L (8-16); BLOOD UREA NITROGEN 15 mg/dL (7-26); BUN/CREATININE RATIO 22 (6-25); CALCIUM 8.2 mg/dL (8.4-10.2); CARBON DIOXIDE 27 mmol/L (22-29); CHLORIDE 105 mmol/L (98-107); CREATININE, SERUM 0.67 mg/dL (0.72-1.25); EST GLOMERULAR FILTRATION RATE > 60 ML/MIN (60-); GLUCOSE 115 mg/dL (74-118); POTASSIUM 3.9 mmol/L (3.5-5.1); SODIUM 139 mmol/L (136-145)
[2020-03-09 08:01] VITALS: BP 117/76
[2020-03-09 08:30] VITALS: BP 117/76
[2020-03-09] MEDS: FAMOTIDINE 20 MG TAB PO SCH (08:54)
[2020-03-09] MEDS: DEXAMETHASONE SOD PHOS INJ 4 MG/ML VIAL IV SCH (08:54)
[2020-03-09] MEDS: ENOXAPARIN SOD INJ 60 MG/0.6 ML SYR SC SCH (08:54)
[2020-03-09] MEDS: ASCORBIC ACID 500 MG TAB PO SCH (08:54)
[2020-03-09] MEDS: ZINC SULFATE 220 MG CAP PO SCH (08:54)
[2020-03-09] MEDS: CHOLECALCIFEROL 400 UNIT TAB PO SCH (08:54)
[2020-03-09] MEDS: CEFTRIAXONE SOD 1 GM/NS 50 ML 50 ML IV SCH (08:55)
[2020-03-09] MEDS: INSULIN REGULAR, HUMAN 100 UNIT/1 ML 3ML VIAL SQ SCH ×2 (08:56→11:32)
[2020-03-09 11:57] VITALS: BP 116/76
[2020-03-09] MEDS ORDERED: Cholecalciferol PO (12:56)
[2020-03-09] MEDS ORDERED: ZINC SULFATE220 M1 PO (12:56)
[2020-03-09] MEDS ORDERED: ASCORBIC ACID500 MG PO (12:56)
[2020-03-09] MEDS ORDERED: DEXAMETHASONE4 MG PO (12:56)
--- NOTE | 2020-03-09 16:15 | Progress Note ---
DATE: SUBJECTIVE: The patient is feeling better. He is down to 2 L of oxygen. He has less dyspnea and less cough. PHYSICAL EXAMINATION: VITAL SIGNS: The blood pressure is 116/76, saturation is 92%. HEENT: No facial swelling or erythema. CARDIAC: Regular rate and rhythm with normal S1, S2. LUNGS: Auscultation of lungs reveals rhonchorous breath sounds bilaterally. There is no wheezing. ABDOMEN: Soft, nontender. There is no rebound or guarding. EXTREMITIES: No leg edema or calf tenderness. There is no cyanosis or clubbing. SKIN: No rashes. NEUROLOGICAL: No focal abnormalities. IMPRESSION: 1. Acute respiratory failure. 2. Viral pneumonia and coronavirus disease-19 infection. 3. Diabetes. 4. Anemia. PLAN: 1. Arrange for discharge home. 2. Home oxygen evaluation. 3. Complete antibiotics. 4. Low-dose Lovenox or high-dose aspirin for one month after discharge. MD [facility] /[id number]
--- NOTE | 2020-03-09 17:10 | NUR ---
Patient received discharge order from Dr. Gifford's IT COORDINATOR [place]. Patient was given discharge paperwork and prescriptions. Patient was educated and verbalized understanding. Patient O2 was given to him and he was educated on it. Patient IV was removed at 1640 and covered with a C/D/I dressing. Patient had no issues or complaints or questions. Patient was wheeled to his car with all of his oxygen tanks and compressor at 1645.
--- NOTE | 2020-03-09 18:42 | Progress Note ---
DATE: SUBJECTIVE: Mr. Mcnair is doing well, he is about the same. No new complaint. PHYSICAL EXAMINATION: GENERAL: He is currently alert. VITAL SIGNS: Stable. Currently afebrile. HEENT: He is not icteric. NECK: Supple. CHEST: Clear. HEART: S1 and S2. ABDOMEN: Soft. He is currently down to 2 L. IMPRESSION: The patient is stable. He can be discharged home to finish Decadron, Eliquis 2.5 p.o. b.i.d. for 6 days, oxygen as needed, Ventolin as needed. MD FANY Smith/[place] /[id number]
--- NOTE | 2020-03-10 00:48 | Discharge Summary ---
CONSULTING PHYSICIANS: 1. Yumiko Hodges MD, with Infectious Disease. 2. Fran Bueno MD, with Pulmonology. CHIEF COMPLAINT: Shortness of breath, sweating, and fever. HISTORY OF PRESENT ILLNESS: A 44-year-old male with past medical history diabetes mellitus, admitted with complaints of shortness of breath, productive cough, and fever since Sunday. His temperature was 103 today. He had associated dyspnea on exertion. He denied sick contacts or recent travel. PAST MEDICAL HISTORY: Type 2 diabetes mellitus, coronary artery disease with PCI. PAST SURGICAL HISTORY: Right great toe surgery. FAMILY HISTORY: Father had diabetes mellitus. SOCIAL HISTORY: Noncontributory. ALLERGIES: NO KNOWN ALLERGIES. ADMITTING DIAGNOSES: 1. Coronavirus disease-2019 pneumonia with acute respiratory distress syndrome, present on admission. 2. Elevated liver function tests. DISCHARGE DIAGNOSES: 1. Pneumonia due to coronavirus disease-2019. 2. Elevated liver function tests, improved. 3. Controlled type 2 diabetes mellitus. On 03/03, WBCs 3.0, hemoglobin 11.6, hematocrit 33.9, platelets 125. Sodium 134, potassium 3.8, chloride 98, CO2 of 25, anion gap 14.8, BUN 15, creatinine 0.8, estimated GFR greater than 60, glucose 148, calcium 8.6, total bilirubin 2.5, AST 29, ALT 33, alkaline phosphatase 173. During his stay, hemoglobin A1c 8.1%. Coronavirus PCR detected on 03/03. Blood cultures x2 showed no growth after 5 days. This is a final report. Initial chest x-ray on 03/03 showed patchy bilateral airspace opacities concerning for pneumonia in the proper clinical setting. Final chest x-ray on 03/08 showed unchanged bilateral multifocal airspace opacities consistent with known pneumonia. Today, vital signs; temperature 98.5, heart rate 77, respirations 24, blood pressure 116/76, pulse oximetry 90%. The patient states he is tired. He has been out of bed with bathroom privileges since morning. Still has dyspnea on exertion and some loose stools. Denies chills, headache, dizziness, cough, nausea, or vomiting. Home oxygen evaluation was completed on 03/05/2020, showed oxygen saturation at rest on room air 87%. Oxygen saturation being exerted on 4 L/minute of oxygen 93%. When I saw the patient, he was on oxygen at 2 L via nasal cannula. Relaxed. No acute distress. No change from previous physical examination. Today, on the day of discharge, sodium 139, potassium 3.9, chloride 105, CO2 of 27, BUN 15, creatinine 0.67, estimated GFR greater than 60, glucose 115. WBCs 4.14, hemoglobin 10.8, hematocrit 31.9, platelets 246, total bilirubin 1.0, AST 36, ALT 54, alkaline phosphatase 247. The patient can be discharged home on oxygen at 2 L/minute via nasal cannula. The patient states his PCP is Dr. Vito Garrido. The patient to followup with Dr. Garrido as well as Dr. Hodges even approximately one month. He is instructed to self quarantine, remain on cardiac diet. Activity level as tolerated. Dictated by Chadwick Rodriguez NP Pito Gifford MD [facility] /[id number]
== END 2020-03-09 17:07 | disposition home or self-care (01) | DRG 177 ==
LOC: ER 08:35 → ERHOLD 08:37 → IMCU 03-04 02:58 → OBSVTOIN 03-04 08:08
PROVIDERS: ADMIT Internal Medicine; ATTEND Internal Medicine
DX: U07.1 COVID-19 (principal); J12.89 Other viral pneumonia; J80 Acute respiratory distress syndrome; J15.9 Unspecified bacterial pneumonia; J96.01 Acute respiratory failure with hypoxia; E11.9 Type 2 diabetes mellitus without complications; F17.210 Nicotine dependence, cigarettes, uncomplicated; I25.10 Atherosclerotic heart disease of native coronary artery without angina pectoris; Z95.5 Presence of coronary angioplasty implant and graft; D69.6 Thrombocytopenia, unspecified; D64.9 Anemia, unspecified; Z83.3 Family history of diabetes mellitus; Z89.411 Acquired absence of right great toe
CPT/HCPCS: 36415; 71045; 80053; 82550; 82553; 82948; 83036; 83880; 84484; 85025; 85610; 85730; 87040; 93005; 96372; 99284; G0378; J0456; J0696; J1100; J1650; J1885; J2405; J7030; J7050; U0002

== ENCOUNTER 2021-01-11 15:48 | Inpatient (IN) | payer OTHER ==
[~2021-01-11] VITALS: Ht 185.4 cm; Wt 108.4 kg
[~2021-01-11 15:48] MED LIST: ASCORBIC ACID500 MG PO; ASPIRIN325 MG PO; Cholecalciferol PO; DEXAMETHASONE4 MG PO; DEXAMETHASONE6 MG PO; ELIQUIS2.5 MG PO; PROAIR HFA INH8.5 GM INH; TYLENOL325 M2 PO; ZINC SULFATE220 M1 PO
[2021-01-11] MEDS ORDERED: MORPHINE SULFATE INJ 4 MG/ML INJ 1ML IV STA (15:58)
[2021-01-11] MEDS ORDERED: ONDANSETRON HCL INJ 2MG/ML 2ML 2 MG/ML VIAL IV STA (15:58)
[2021-01-11] MEDS ORDERED: ENOXAPARIN SODIUM INJ 100 MG/ML SYR SC STA (16:02)
[2021-01-11] MEDS ORDERED: ASPIRIN 325 MG TAB PO STA (16:02)
[2021-01-11] MEDS ORDERED: MORPHINE SULFATE INJ 2 MG/ML SYR IV PRN (16:15)
[2021-01-11] MEDS ORDERED: ONDANSETRON HCL INJ 2MG/ML 2ML 2 MG/ML VIAL IV PRN (16:15)
[2021-01-11] MEDS ORDERED: MORPHINE SULFATE INJ 4 MG/ML INJ 1ML ONE (17:02)
[2021-01-11] MEDS ORDERED: ASPIRIN 325 MG TAB ONE (17:02)
[2021-01-11] MEDS ORDERED: ONDANSETRON HCL INJ 2MG/ML 2ML 2 MG/ML VIAL ONE (17:02)
[2021-01-11] MEDS ORDERED: ENOXAPARIN SODIUM INJ 100 MG/ML SYR SC ONE (17:02)
[2021-01-11 18:17] VITALS: BP 132/108
[2021-01-11 18:21] VITALS: BP 132/108
[2021-01-11] MEDS ORDERED: DEXTROSE 50% SYRINGE 50 ML IV PRN (18:45)
[2021-01-11] MEDS ORDERED: HYDRALAZINE HCL 20 MG/ML VIAL IV PRN (18:45)
[2021-01-11] MEDS: ATORVASTATIN 20 MG TAB PO SCH (19:59)
[2021-01-11 20:30] VITALS: BP 110/87
[2021-01-11] MEDS: FUROSEMIDE INJ 10 MG/ML 4 ML VIAL IV SCH (20:40)
[2021-01-11] MEDS: INSULIN LISPRO 100 UNIT/1 ML 3ML VIAL SQ SCH (20:41)
[2021-01-11 21:40] VITALS: BP 110/87
[2021-01-11] MEDS ORDERED: insulin SC (22:51)
[2021-01-11 23:51] VITALS: BP 102/71
[2021-01-12] VITALS (9 sets, daily range): BP systolic 97–121; BP diastolic 59–85
[2021-01-12 05:05] LABS: INR 0.99; PROTHROMBIN TIME 13.7 seconds (11.9-14.5)
[2021-01-12 05:15] LABS: CHOL/HDL RATIO 7.4 (3.9-4.7)
[2021-01-12 05:35] LABS: THYROID STIMULATING HORMONE 2.855 uIU/mL (0.350-4.940)
[2021-01-12 06:43] LABS: BASOPHILS % 0.8 % (0.0-1.0); EOSINOPHILS # (AUTO) 0.2 (0.0-0.4); EOSINOPHILS % 4.7 % (0.0-6.0); HEMATOCRIT 37.7 % (38.2-49.6); HEMOGLOBIN 12.9 g/dL (14.0-18.0); LYMPHOCYTES # (AUTO) 1.3 (1.0-3.2); LYMPHOCYTES % 28.2 % (18.0-39.1); MEAN CORPUSCULAR HEMOGLOBIN 28.4 pg (28-32); MEAN CORPUSCULAR HGB CONC 34.2 g/dL (31-35); MONOCYTES # (AUTO) 0.2 (0.2-0.8); MONOCYTES % 4.9 % (4.4-11.3); NEUTROPHILS # (AUTO) 2.9 (2.1-6.9); NEUTROPHILS % 61.2 % (38.7-80.0); PLATELET COUNT 177 x10e3/uL (140-360); RED BLOOD COUNT 4.54 x10e6/uL (4.3-5.7)
[2021-01-12 06:59] LABS: CREATINE KINASE MB 3.6 ng/mL (0-5.0)
[2021-01-12 07:15] LABS: ALANINE AMINOTRANSFERASE 33 IU/L (0-55); ALBUMIN 3.7 g/dL (3.5-5.0); ALBUMIN/GLOBULIN RATIO 1.3 (0.8-2.0); ALKALINE PHOSPHATASE 91 IU/L (40-150); ANION GAP 14.8 mmol/L (8-16); BLOOD UREA NITROGEN 18 mg/dL (7-26); BUN/CREATININE RATIO 21 (6-25); CALCIUM 8.7 mg/dL (8.4-10.2); CARBON DIOXIDE 21 mmol/L (22-29); CHLORIDE 107 mmol/L (98-107); CREATININE, SERUM 0.84 mg/dL (0.72-1.25); EST GLOMERULAR FILTRATION RATE > 60 ML/MIN (60-); GLUCOSE 187 mg/dL (74-118); POTASSIUM 3.8 mmol/L (3.5-5.1); SODIUM 139 mmol/L (136-145)
[2021-01-12] MEDS: INSULIN LISPRO 100 UNIT/1 ML 3ML VIAL SQ SCH ×4 (07:30→21:24)
[2021-01-12] MEDS ORDERED: METOPROLOL SUCCINATE 25 MG TAB XL PO SCH (09:00)
[2021-01-12] MEDS ORDERED: METOLAZONE 5 MG TAB PO SCH (09:00)
[2021-01-12] MEDS: ASPIRIN 81 MG ENTERIC COATED PO SCH (10:00)
[2021-01-12] MEDS: FUROSEMIDE INJ 10 MG/ML 4 ML VIAL IV SCH ×2 (10:00→17:47)
[2021-01-12 10:55] LABS: ALANINE AMINOTRANSFERASE 33 IU/L (0-55); ALBUMIN 3.7 g/dL (3.5-5.0); ALBUMIN/GLOBULIN RATIO 1.2 (0.8-2.0); ALKALINE PHOSPHATASE 94 IU/L (40-150); ANION GAP 14.1 mmol/L (8-16); BLOOD UREA NITROGEN 17 mg/dL (7-26); BUN/CREATININE RATIO 20 (6-25); CALCIUM 8.6 mg/dL (8.4-10.2); CARBON DIOXIDE 23 mmol/L (22-29); CHLORIDE 106 mmol/L (98-107); CREATININE, SERUM 0.85 mg/dL (0.72-1.25); EST GLOMERULAR FILTRATION RATE > 60 ML/MIN (60-); GLUCOSE 201 mg/dL (74-118); POTASSIUM 4.1 mmol/L (3.5-5.1); SODIUM 139 mmol/L (136-145)
[2021-01-12] MEDS ORDERED: MORPHINE SULFATE INJ 4 MG/ML INJ 1ML IV PRN (11:30)
[2021-01-12 12:46] LABS: CREATINE KINASE MB 3.5 ng/mL (0-5.0)
[2021-01-12] MEDS ORDERED: INSULIN GLARGINE 100 UNITS/ML VIAL SQ SCH (21:00)
[2021-01-12] MEDS: ATORVASTATIN 20 MG TAB PO SCH (21:10)
[2021-01-13 05:05] VITALS: BP 102/68
[2021-01-13 05:39] LABS: ALANINE AMINOTRANSFERASE 30 IU/L (0-55); ALBUMIN 3.7 g/dL (3.5-5.0); ALBUMIN/GLOBULIN RATIO 1.3 (0.8-2.0); ALKALINE PHOSPHATASE 91 IU/L (40-150); ANION GAP 13.7 mmol/L (8-16); BLOOD UREA NITROGEN 18 mg/dL (7-26); BUN/CREATININE RATIO 23 (6-25); CALCIUM 8.5 mg/dL (8.4-10.2); CARBON DIOXIDE 24 mmol/L (22-29); CHLORIDE 103 mmol/L (98-107); EST GLOMERULAR FILTRATION RATE > 60 ML/MIN (60-); GLUCOSE 173 mg/dL (74-118); POTASSIUM 3.7 mmol/L (3.5-5.1); SODIUM 137 mmol/L (136-145)
[2021-01-13 07:24] VITALS: BP 103/78
[2021-01-13] MEDS: INSULIN LISPRO 100 UNIT/1 ML 3ML VIAL SQ SCH ×3 (07:30→16:48)
[2021-01-13 08:48] VITALS: BP 103/78
[2021-01-13] MEDS ORDERED: CLOPIDOGREL BISULFATE 75 MG TAB PO SCH (09:00)
[2021-01-13] MEDS: FUROSEMIDE INJ 10 MG/ML 4 ML VIAL IV SCH (09:00)
[2021-01-13] MEDS: ASPIRIN 81 MG ENTERIC COATED PO SCH (09:00)
[2021-01-13] MEDS ORDERED: ONDANSETRON HCL 4 MG ORAL DISINTEGRATING TAB PO PRN (09:00)
[2021-01-13] MEDS ORDERED: LACTATED RINGER'S 1,000 ML ONE (10:30)
[2021-01-13 11:18] VITALS: BP 99/75
[2021-01-13] MEDS ORDERED: METOPROLOL SUCCINATE 25 MG TAB XL PO SCH (12:00)
[2021-01-13 15:34] VITALS: BP 106/83
[2021-01-13] MEDS ORDERED: FUROSEMIDE40 MG PO (17:00)
[2021-01-13] MEDS ORDERED: COZAAR25 MG PO (17:00)
[2021-01-13] MEDS ORDERED: PLAVIX75 MG PO (17:00)
[2021-01-13] MEDS ORDERED: TOPROL XL25 MG PO (17:00)
[2021-01-13] MEDS ORDERED: ASPIRIN EC81 MG PO (17:00)
[2021-01-13] MEDS ORDERED: LIPITOR20 MG PO (17:00)
[2021-01-13] MEDS ORDERED: FUROSEMIDE 40 MG TAB PO SCH (18:00)
[2021-01-14] MEDS ORDERED: LOSARTAN POTASSIUM 25 MG TAB PO SCH (09:00)
== END 2021-01-13 18:50 | disposition home or self-care (01) | DRG 293 ==
LOC: FSED 15:56 → ERHOLD 16:08 → MED/SURG 18:09
PROVIDERS: ADMIT Internal Medicine; ATTEND Internal Medicine
DX: I11.0 Hypertensive heart disease with heart failure (principal); I25.10 Atherosclerotic heart disease of native coronary artery without angina pectoris; I50.23 Acute on chronic systolic (congestive) heart failure; Z95.5 Presence of coronary angioplasty implant and graft; E11.8 Type 2 diabetes mellitus with unspecified complications; Z79.899 Other long term (current) drug therapy; E11.51 Type 2 diabetes mellitus with diabetic peripheral angiopathy without gangrene; Z89.411 Acquired absence of right great toe; Z20.822 Contact with and (suspected) exposure to COVID-19; E78.00 Pure hypercholesterolemia, unspecified
CPT/HCPCS: 36415; 71046; 80048; 80053; 80061; 82550; 82553; 82948; 83036; 83735; 83880; 84443; 84484; 85025; 85379; 85610; 93306; 96372; 96374; 96376; 99283; J1650; J1815; J1940; J2270; J2405; J7121; U0002